=== PATIENT | female | born 1960 | race Caucasian/White ===

== ENCOUNTER → 2016-04-04 | Outpatient (CLI) | payer OTHER ==
[2016-04-04 19:47] LABS: FREE T4 0.95 NG/DL (0.76-1.46)
== END ==
LOC: M WUC 17:17
PROVIDERS: ATTEND Internal Medicine Endocrinology, Diabetes & Metabolism
DX: E03.9 Hypothyroidism, unspecified (principal)

== ENCOUNTER → 2016-04-04 | Outpatient (CLI) | payer OTHER | LOC: M WUC 17:21 | PROVIDERS: ATTEND Internal Medicine | DX: R73.9 Hyperglycemia, unspecified (principal) ==

== ENCOUNTER → 2016-12-05 | Outpatient (CLI) | payer OTHER ==
[2016-12-05 15:03] LABS: FREE T4 1.05 NG/DL (0.76-1.46)
== END ==
LOC: M LAB 13:33
PROVIDERS: ATTEND Internal Medicine Endocrinology, Diabetes & Metabolism
DX: E03.9 Hypothyroidism, unspecified (principal); E04.9 Nontoxic goiter, unspecified

== ENCOUNTER → 2018-04-15 | Outpatient (REF) | payer OTHER ==
[2018-04-15 13:49] LABS: BASO % 0.3 % (0.0-1.0); EOS % 0.2 % (0.0-3.0); HEMATOCRIT 41.6 % (36.0-47.0); HEMOGLOBIN 14.1 g/dl (12.0-15.5); LYMPH # 2.8 10^3/uL (1.5-4.5); LYMPH % 18.7 % (24.0-44.0); MEAN CORPUSCULAR HEMOGLOBIN 30.5 pg (27.0-33.0); MEAN CORPUSCULAR HGB CONC 33.9 g/dl (32.0-36.5); MEAN CORPUSCULAR VOLUME 89.8 fl (80.0-96.0); MONO % 6.9 % (0.0-5.0); NEUTROPHILS # 11.1 10^3/uL (1.8-7.7); NEUTROPHILS % 73.3 % (36.0-66.0); PLATELET COUNT, AUTOMATED 238 10^3/uL (150-450); RED BLOOD COUNT 4.63 10^6/uL (4.00-5.40); WHITE BLOOD COUNT 15.1 10^3/uL (4.0-10.0)
[2018-04-15 14:02] LABS: ALBUMIN 3.6 GM/DL (3.2-5.2); ALT/SGPT 24 U/L (12-78); BILIRUBIN,TOTAL 0.6 MG/DL (0.2-1.0); BLOOD UREA NITROGEN 22 MG/DL (7-18); CALCIUM LEVEL 8.6 MG/DL (8.5-10.1); CARBON DIOXIDE LEVEL 27 MEQ/L (21-32); CHLORIDE LEVEL 103 MEQ/L (98-107); CHOLESTEROL LEVEL 204 MG/DL (<200); CHOLESTEROL RISK RATIO 2.794 (<5); CREATININE FOR GFR 0.61 MG/DL (0.55-1.30); FREE T4 1.46 NG/DL (0.76-1.46); GLOMERULAR FILTRATION RATE > 60.0 (>51); GLUCOSE, FASTING 117 MG/DL (70-100); HDL CHOLESTEROL 73 MG/DL (>40); LDL CHOLESTEROL 96 MG/DL (<100); NON-HDL-C 131 MG/DL; SODIUM LEVEL 139 MEQ/L (136-145); THYROID STIMULATING HORMONE 0.053 uIU/ML (0.358-3.740); TOTAL 25(OH) VITAMIN D 25.3 NG/ML (30.0-100.0); TOTAL PROTEIN 7.1 GM/DL (6.4-8.2); TRIGLYCERIDES LEVEL 176 MG/DL (<150)
[2018-04-15 14:27] LABS: HEMOGLOBIN A1c 6.4 %
== END ==
LOC: M LABDRAW1 13:21
PROVIDERS: ATTEND Physician Assistant
DX: Z13.29 Encounter for screening for other suspected endocrine disorder (principal); E03.9 Hypothyroidism, unspecified

== ENCOUNTER → 2018-04-26 | Outpatient (REF) | payer OTHER ==
[2018-04-30 00:07] LABS: HPV HYBRID CAPTURE II Negative (Negative)
== END ==
LOC: M LAB REF 18:22
PROVIDERS: ATTEND Family Medicine
DX: R39.15 Urgency of urination (principal)

== ENCOUNTER → 2018-07-14 | Outpatient (REF) | payer OTHER ==
[2018-07-14 12:27] LABS: BASO # 0.1 10^3/uL (0.0-0.2); BASO % 0.9 % (0.0-1.0); EOS # 0.1 10^3/uL (0.0-0.50); EOS % 1.7 % (0.0-3.0); HEMATOCRIT 42.6 % (36.0-47.0); HEMOGLOBIN 14.4 g/dl (12.0-15.5); LYMPH # 2.4 10^3/uL (1.5-4.5); LYMPH % 34.3 % (24.0-44.0); MEAN CORPUSCULAR HEMOGLOBIN 30.1 pg (27.0-33.0); MEAN CORPUSCULAR HGB CONC 33.8 g/dl (32.0-36.5); MEAN CORPUSCULAR VOLUME 88.9 fl (80.0-96.0); MONO # 0.4 10^3/uL (0.0-0.8); MONO % 5.5 % (0.0-5.0); NEUTROPHILS % 57.3 % (36.0-66.0); PLATELET COUNT, AUTOMATED 199 10^3/uL (150-450); RED BLOOD COUNT 4.79 10^6/uL (4.00-5.40); WHITE BLOOD COUNT 6.9 10^3/uL (4.0-10.0)
[2018-07-14 12:37] LABS: BLOOD UREA NITROGEN 11 MG/DL (7-18); CARBON DIOXIDE LEVEL 29 MEQ/L (21-32); CHLORIDE LEVEL 106 MEQ/L (98-107); CREATININE FOR GFR 0.62 MG/DL (0.55-1.30); FREE T4 1.34 NG/DL (0.76-1.46); GLOMERULAR FILTRATION RATE > 60.0 (>51); GLUCOSE, FASTING 110 MG/DL (70-100); POTASSIUM SERUM 4.1 MEQ/L (3.5-5.1); SODIUM LEVEL 140 MEQ/L (136-145)
[2018-07-14 12:47] LABS: HEMOGLOBIN A1c 5.8 %
[2018-07-14 12:48] LABS: CREATININE, URINE 27.8 MG/DL; MALB URINE SIEMENS < 5.0 MG/L; MAU/CREAT RATIO 17.9 MCG/MG (0.0-30.0)
== END ==
LOC: M LABDRAW1 09:44
PROVIDERS: ATTEND Physician Assistant
DX: Z79.899 Other long term (current) drug therapy (principal)

== ENCOUNTER → 2018-09-16 | Outpatient (REF) | payer OTHER ==
[2018-09-16 16:14] LABS: BASO # 0.1 10^3/uL (0.0-0.2); BASO % 0.6 % (0.0-1.0); EOS # 0.1 10^3/uL (0.0-0.50); EOS % 0.9 % (0.0-3.0); HEMATOCRIT 40.6 % (36.0-47.0); HEMOGLOBIN 13.6 g/dl (12.0-15.5); LYMPH # 2.2 10^3/uL (1.5-4.5); LYMPH % 25.6 % (24.0-44.0); MEAN CORPUSCULAR HEMOGLOBIN 30.9 pg (27.0-33.0); MEAN CORPUSCULAR HGB CONC 33.5 g/dl (32.0-36.5); MEAN CORPUSCULAR VOLUME 92.3 fl (80.0-96.0); MONO # 0.5 10^3/uL (0.0-0.8); MONO % 5.2 % (0.0-5.0); NEUTROPHILS # 5.8 10^3/uL (1.8-7.7); NEUTROPHILS % 67.5 % (36.0-66.0); PLATELET COUNT, AUTOMATED 184 10^3/uL (150-450); WHITE BLOOD COUNT 8.6 10^3/uL (4.0-10.0)
[2018-09-16 16:23] LABS: FREE T4 1.14 NG/DL (0.76-1.46); THYROID STIMULATING HORMONE 1.43 uIU/ML (0.358-3.740)
== END ==
LOC: M LABDRAW1 15:49
PROVIDERS: ATTEND Physician Assistant
DX: E03.9 Hypothyroidism, unspecified (principal)

== ENCOUNTER → 2021-02-25 | Outpatient (CLI) | payer OTHER, MEDICARE ==
[~2021-02-25] MED LIST: LEVO175T2 PO; QC A650T3 PO; RELP40TA PO
[2021-02-25 18:02] LABS: C REACTIVE PROTEIN QUANTITATIV 0.33 MG/DL (0.00-0.30); RHEUMATOID FACTOR QUANT < 10.0 IU/ML (<15.0); URIC ACID 4.1 MG/DL (2.6-6.0)
[2021-02-27 23:07] LABS: ANA (HEP2) Negative (.); CYCLIC CITRULLINATED PEPTIDE 6 units (0-19); Lyme Disease IgG/IgM Antibodie <0.91 ISR (0.00-0.90); Lyme Disease IgM Ab Quantitati <0.80 index (0.00-0.79)
== END ==
LOC: MERGE 14:58 → M PLALAB 14:58
PROVIDERS: ATTEND Physician Assistant
DX: M25.539 Pain in unspecified wrist (principal)

== ENCOUNTER → 2021-03-08 | Outpatient (CLI) | payer MEDICARE, OTHER ==
[2021-03-08 13:35] LABS: BASO # 0.1 10^3/uL (0.0-0.2); BASO % 0.7 % (0.0-1.0); EOS # 0.2 10^3/uL (0.0-0.5); EOS % 1.7 % (0.0-3.0); HEMATOCRIT 43.7 % (36.0-47.0); HEMOGLOBIN 14.6 g/dl (12.0-15.5); LYMPH # 3.1 10^3/uL (1.5-5.0); LYMPH % 32.1 % (24.0-44.0); MEAN CORPUSCULAR HEMOGLOBIN 30.1 pg (27.0-33.0); MEAN CORPUSCULAR HGB CONC 33.4 g/dl (32.0-36.5); MEAN CORPUSCULAR VOLUME 90.1 fl (80.0-96.0); MONO # 0.7 10^3/uL (0.0-0.8); MONO % 7.2 % (2.0-8.0); NEUTROPHILS # 5.6 10^3/uL (1.5-8.5); NEUTROPHILS % 58.1 % (36.0-66.0); PLATELET COUNT, AUTOMATED 212 10^3/uL (150-450); RED BLOOD COUNT 4.85 10^6/uL (4.00-5.40); WHITE BLOOD COUNT 9.6 10^3/uL (4.0-10.0)
[2021-03-08 14:14] LABS: BLOOD UREA NITROGEN 13 MG/DL (7-18); CARBON DIOXIDE LEVEL 28 MEQ/L (21-32); CHLORIDE LEVEL 106 MEQ/L (98-107); CREATININE FOR GFR 0.74 MG/DL (0.55-1.30); GLOMERULAR FILTRATION RATE > 60.0 (>45); GLUCOSE, FASTING 108 MG/DL (70-100); POTASSIUM SERUM 5.5 MEQ/L (3.5-5.1); SODIUM LEVEL 140 MEQ/L (136-145)
== END ==
LOC: MERGE 11:23 → M PLALAB 11:23
PROVIDERS: ATTEND Family Medicine
DX: Z01.818 Encounter for other preprocedural examination (principal); M75.41 Impingement syndrome of right shoulder; Z11.52 Encounter for screening for COVID-19
CPT/HCPCS: 36415; 80048; 85025; U0003

== ENCOUNTER → 2021-03-08 | Outpatient (CLI) | payer MEDICARE, OTHER | LOC: M LABSMTC 11:14 → MERGE 11:14 | PROVIDERS: ATTEND Orthopaedic Surgery | DX: Z11.52 Encounter for screening for COVID-19 (principal); M75.41 Impingement syndrome of right shoulder ==

== ENCOUNTER → 2021-09-09 | Outpatient (CLI) | payer OTHER | LOC: M PLAIMG 06:35 | PROVIDERS: ATTEND Family Medicine | DX: M54.12 Radiculopathy, cervical region (principal); M25.78 Osteophyte, vertebrae ==

== ENCOUNTER → 2021-10-16 | Outpatient (CLI) | payer OTHER, MEDICARE ==
[2021-10-16 13:28] LABS: BASO # 0.1 10^3/uL (0.0-0.2); BASO % 0.8 % (0.0-1.0); EOS # 0.1 10^3/uL (0.0-0.5); EOS % 0.9 % (0.0-3.0); HEMATOCRIT 41.3 % (36.0-47.0); HEMOGLOBIN 13.7 g/dl (12.0-15.5); LYMPH # 2.6 10^3/uL (1.5-5.0); MEAN CORPUSCULAR HEMOGLOBIN 30.9 pg (27.0-33.0); MEAN CORPUSCULAR HGB CONC 33.2 g/dl (32.0-36.5); MONO # 0.4 10^3/uL (0.0-0.8); NEUTROPHILS # 5.6 10^3/uL (1.5-8.5); PLATELET COUNT, AUTOMATED 239 10^3/uL (150-450); RED BLOOD COUNT 4.44 10^6/uL (4.00-5.40); WHITE BLOOD COUNT 8.8 10^3/uL (4.0-10.0)
[2021-10-16 13:51] LABS: HEMOGLOBIN A1c 5.8 %
[2021-10-16 14:16] LABS: ALBUMIN 3.9 GM/DL (3.2-5.2); ALT/SGPT 22 U/L (12-78); BILIRUBIN,TOTAL 1.3 MG/DL (0.2-1.0); BLOOD UREA NITROGEN 17 MG/DL (7-18); CALCIUM LEVEL 9.8 MG/DL (8.8-10.2); CARBON DIOXIDE LEVEL 27 MEQ/L (21-32); CHLORIDE LEVEL 109 MEQ/L (98-107); CHOLESTEROL LEVEL 228 MG/DL (<200); CHOLESTEROL RISK RATIO 3.454 (<5); CREATININE FOR GFR 0.68 MG/DL (0.55-1.30); FREE T4 1.32 NG/DL (0.76-1.46); GLOMERULAR FILTRATION RATE > 60.0 (>45); GLUCOSE, FASTING 134 MG/DL (70-100); HDL CHOLESTEROL 66 MG/DL (>40); LDL CHOLESTEROL 146 MG/DL (<100); NON-HDL-C 162 MG/DL; POTASSIUM SERUM 4.4 MEQ/L (3.5-5.1); SODIUM LEVEL 141 MEQ/L (136-145); THYROID STIMULATING HORMONE 0.532 uIU/ML (0.358-3.740); TOTAL PROTEIN 7.5 GM/DL (6.4-8.2); TRIGLYCERIDES LEVEL 82 MG/DL (<150)
[2021-10-16 14:44] LABS: TOTAL 25(OH) VITAMIN D 50.8 NG/ML (30.0-100.0); VITAMIN B12 LEVEL 578 PG/ML
[2021-10-16 14:45] LABS: FOLATE 11.1 NG/ML
[2021-10-16 15:16] LABS: ERYTHROCYTE SEDIMENTATION RATE 35 mm/hr (0-30)
== END ==
LOC: M LAB 12:26
PROVIDERS: ATTEND Family Medicine
DX: E78.00 Pure hypercholesterolemia, unspecified (principal); E55.9 Vitamin D deficiency, unspecified; E03.9 Hypothyroidism, unspecified; M79.7 Fibromyalgia

== ENCOUNTER → 2021-10-16 | Outpatient (REF) | payer OTHER | LOC: M LAB REF 12:25 | PROVIDERS: ATTEND Physician Assistant | DX: J06.9 Acute upper respiratory infection, unspecified (principal) ==

== ENCOUNTER → 2022-02-03 | Outpatient (CLI) | payer OTHER, MEDICARE | LOC: M WUC 14:32 | PROVIDERS: ATTEND Physician Assistant | DX: U09.9 Post COVID-19 condition, unspecified (principal) ==

== ENCOUNTER → 2022-02-17 | Outpatient (CLI) | payer OTHER, MEDICARE ==
[2022-02-17 16:41] LABS: BASO % 0.5 % (0.0-1.0); EOS % 0.1 % (0.0-3.0); HEMATOCRIT 40.9 % (36.0-47.0); HEMOGLOBIN 13.3 g/dl (12.0-15.5); LYMPH # 1.2 10^3/uL (1.5-5.0); LYMPH % 14.5 % (24.0-44.0); MEAN CORPUSCULAR HEMOGLOBIN 30.2 pg (27.0-33.0); MEAN CORPUSCULAR HGB CONC 32.5 g/dl (32.0-36.5); MEAN CORPUSCULAR VOLUME 92.7 fl (80.0-96.0); MONO # 0.1 10^3/uL (0.0-0.8); MONO % 1.5 % (2.0-8.0); NEUTROPHILS # 6.8 10^3/uL (1.5-8.5); NEUTROPHILS % 83.2 % (36.0-66.0); PLATELET COUNT, AUTOMATED 211 10^3/uL (150-450); RED BLOOD COUNT 4.41 10^6/uL (4.00-5.40); WHITE BLOOD COUNT 8.1 10^3/uL (4.0-10.0)
[2022-02-17 17:10] LABS: ERYTHROCYTE SEDIMENTATION RATE 22 mm/hr (0-30)
[2022-02-17 17:12] LABS: ALBUMIN 4.2 G/DL (3.2-5.2); ALT/SGPT 14 U/L (7.0-40); BILIRUBIN,DIRECT 0.3 MG/DL (<0.4); BILIRUBIN,TOTAL 1.2 MG/DL (0.3-1.2); BLOOD UREA NITROGEN 17 MG/DL (9-23); CALCIUM LEVEL 8.7 MG/DL (8.3-10.6); CARBON DIOXIDE LEVEL 27 MMOL/L (20-31); CHLORIDE LEVEL 103 MMOL/L (98-107); CK-MB VALUE MASS < 1.0 NG/ML (<3.6); CREATININE FOR GFR 0.58 MG/DL (0.55-1.30); FREE T4 1.33 NG/DL (0.89-1.76); GLOMERULAR FILTRATION RATE > 60.0 (>45); GLUCOSE, FASTING 156 MG/DL (74-106); POTASSIUM SERUM 3.8 MMOL/L (3.5-5.1); SODIUM LEVEL 139 MMOL/L (136-145); THYROID STIMULATING HORMONE 0.728 uIU/ML (0.55-4.78); TOTAL PROTEIN 7.3 G/DL (5.7-8.2)
== END ==
LOC: M LAB 15:05
PROVIDERS: ATTEND Family Medicine
DX: U09.9 Post COVID-19 condition, unspecified (principal)

== ENCOUNTER → 2022-03-25 | Outpatient (CLI) | payer MEDICARE, OTHER | LOC: M LABSMTC 11:25 | PROVIDERS: ATTEND Orthopaedic Surgery | DX: Z79.890 Hormone replacement therapy (principal) ==

== ENCOUNTER → 2022-04-21 | Outpatient (CLI) | payer MEDICARE, OTHER | LOC: M LABSMTC 11:31 | PROVIDERS: ATTEND Orthopaedic Surgery Orthopaedic Surgery of the Spine | DX: Z20.822 Contact with and (suspected) exposure to COVID-19 (principal) ==

== ENCOUNTER → 2022-04-27 | Outpatient (CLI) | payer MEDICARE, OTHER | LOC: M LABSMTC 11:25 | PROVIDERS: ATTEND Orthopaedic Surgery Orthopaedic Surgery of the Spine | DX: Z20.828 Contact with and (suspected) exposure to other viral communicable diseases (principal); Z11.52 Encounter for screening for COVID-19 ==

== ENCOUNTER → 2022-05-06 | Outpatient (CLI) | payer MEDICARE, OTHER | LOC: M LABSMTC 09:45 | PROVIDERS: ATTEND Orthopaedic Surgery | DX: Z20.828 Contact with and (suspected) exposure to other viral communicable diseases (principal); Z11.52 Encounter for screening for COVID-19 ==

== ENCOUNTER → 2022-06-17 | Outpatient (CLI) | payer MEDICARE, OTHER ==
[~2022-06-17] MED LIST changes: +ISOVUE-370 76% 100ML VIAL As Ordered ONE
== END ==
LOC: M RAD 08:34
PROVIDERS: ATTEND Physician Assistant
DX: R06.02 Shortness of breath (principal)
CPT/HCPCS: 71275; Q9967

== ENCOUNTER → 2022-11-12 | Outpatient (CLI) | payer MEDICARE, OTHER ==
[~2022-11-12] MED LIST changes: -ISOVUE-370 76% 100ML VIAL As Ordered ONE
== END ==
LOC: M WUC 14:32
PROVIDERS: ATTEND Nurse Practitioner Family
DX: S92.515A Nondisplaced fracture of proximal phalanx of left lesser toe(s), initial encounter for closed fracture (principal)

== ENCOUNTER → 2023-01-28 | Outpatient (CLI) | payer MEDICARE, OTHER ==
[2023-01-28 16:04] LABS: BASO % 0.6 % (0.0-1.0); EOS # 0.1 10^3/uL (0.0-0.5); EOS % 1.7 % (0.0-3.0); HEMOGLOBIN 14.2 g/dl (12.0-15.5); LYMPH # 2.6 10^3/uL (1.5-5.0); MEAN CORPUSCULAR HEMOGLOBIN 29.2 pg (27.0-33.0); MEAN CORPUSCULAR VOLUME 88.3 fl (80.0-96.0); MONO # 0.6 10^3/uL (0.0-0.8); MONO % 9.8 % (2.0-8.0); NEUTROPHILS % 46.7 % (36.0-66.0); PLATELET COUNT, AUTOMATED 188 10^3/uL (150-450); RED BLOOD COUNT 4.87 10^6/uL (4.00-5.40); WHITE BLOOD COUNT 6.4 10^3/uL (4.0-10.0)
[2023-01-28 16:26] LABS: ERYTHROCYTE SEDIMENTATION RATE 34 mm/hr (0-30)
[2023-01-28 16:31] LABS: TOTAL IRON BINDING CAPACITY 322 UG/DL (250-425)
[2023-01-28 16:32] LABS: ALBUMIN 3.8 G/DL (3.2-5.2); ALKALINE PHOSPHATASE 120 U/L (46-116); ALT/SGPT 19 U/L (7.0-40); AST/SGOT 20 U/L (<34); BILIRUBIN,TOTAL 1.2 MG/DL (0.3-1.2); BLOOD UREA NITROGEN 13 MG/DL (9-23); CALCIUM LEVEL 9.4 MG/DL (8.3-10.6); CARBON DIOXIDE LEVEL 29 MMOL/L (20-31); CHLORIDE LEVEL 106 MMOL/L (98-107); CHOLESTEROL LEVEL 197 MG/DL (<200); CHOLESTEROL RISK RATIO 2.97 (<5); CREATININE FOR GFR 0.54 MG/DL (0.55-1.30); GLOMERULAR FILTRATION RATE > 60.0 (>45); GLUCOSE, FASTING 110 MG/DL (74-106); HDL CHOLESTEROL 66.3 MG/DL (>40); IRON (FE) 35 UG/DL (50-170); LDL CHOLESTEROL 111.9 MG/DL (<100); NON-HDL-C 130.7 MG/DL; PERCENT SATURATION 10.9 % (13.2-45.0); POTASSIUM SERUM 4.8 MMOL/L (3.5-5.1); SODIUM LEVEL 140 MMOL/L (136-145); TOTAL PROTEIN 7.2 G/DL (5.7-8.2); TRIGLYCERIDES LEVEL 94 MG/DL (<150)
[2023-01-28 16:35] LABS: FERRITIN 109.9 NG/ML (7.3-270.7); FREE T4 1.93 NG/DL (0.89-1.76); THYROID STIMULATING HORMONE 0.009 uIU/ML (0.55-4.78)
[2023-01-28 16:36] LABS: FOLATE 15.9 NG/ML (>5.4)
[2023-01-28 16:37] LABS: TOTAL 25(OH) VITAMIN D 35.3 NG/ML (20.0-100.0); VITAMIN B12 LEVEL 509 PG/ML (211-911)
[2023-01-28 16:41] LABS: HEMOGLOBIN A1c 5.7 % (4.0-6.0)
== END ==
LOC: M LAB 15:14
PROVIDERS: ATTEND Physician Assistant
DX: E03.9 Hypothyroidism, unspecified (principal); E55.9 Vitamin D deficiency, unspecified; E78.00 Pure hypercholesterolemia, unspecified; M79.7 Fibromyalgia; Z79.899 Other long term (current) drug therapy

== ENCOUNTER → 2023-06-29 | Outpatient (CLI) | payer MEDICARE, OTHER ==
[2023-06-29 15:30] LABS: BASO % 0.5 % (0.0-1.0); EOS # 0.1 10^3/uL (0.0-0.5); EOS % 1.4 % (0.0-3.0); HEMATOCRIT 39.8 % (36.0-47.0); HEMOGLOBIN 13.4 g/dl (12.0-15.5); LYMPH % 34.8 % (24.0-44.0); MEAN CORPUSCULAR HGB CONC 33.7 g/dl (32.0-36.5); MEAN CORPUSCULAR VOLUME 92.1 fl (80.0-96.0); MONO # 0.6 10^3/uL (0.0-0.8); MONO % 6.4 % (2.0-8.0); NEUTROPHILS # 4.8 10^3/uL (1.5-8.5); NEUTROPHILS % 56.8 % (36.0-66.0); PLATELET COUNT, AUTOMATED 183 10^3/uL (150-450); RED BLOOD COUNT 4.32 10^6/uL (4.00-5.40); WHITE BLOOD COUNT 8.5 10^3/uL (4.0-10.0)
[2023-06-29 16:06] LABS: ALBUMIN 3.7 G/DL (3.2-5.2); ALKALINE PHOSPHATASE 107 U/L (46-116); ALT/SGPT 24 U/L (7.0-40); AST/SGOT 20 U/L (<34); BILIRUBIN,TOTAL 1.5 MG/DL (0.3-1.2); BLOOD UREA NITROGEN 15 MG/DL (9-23); CARBON DIOXIDE LEVEL 30 MMOL/L (20-31); CHLORIDE LEVEL 105 MMOL/L (98-107); GLOMERULAR FILTRATION RATE > 60.0 (>45); GLUCOSE, FASTING 93 MG/DL (74-106); MAGNESIUM LEVEL 2.1 MG/DL (1.8-2.4); POTASSIUM SERUM 3.8 MMOL/L (3.5-5.1); SODIUM LEVEL 137 MMOL/L (136-145); TOTAL PROTEIN 6.4 G/DL (5.7-8.2)
[2023-06-29 16:09] LABS: FREE T4 1.07 NG/DL (0.89-1.76); VITAMIN B12 LEVEL 603 PG/ML (211-911)
[2023-06-29 16:11] LABS: THYROID STIMULATING HORMONE 0.625 uIU/ML (0.55-4.78)
[2023-06-29 16:29] LABS: HEMOGLOBIN A1c 5.8 % (4.0-6.0)
== END ==
LOC: M LAB 14:50
PROVIDERS: ATTEND Physician Assistant
DX: E03.9 Hypothyroidism, unspecified (principal); E78.00 Pure hypercholesterolemia, unspecified; M79.7 Fibromyalgia; R73.01 Impaired fasting glucose; Z79.899 Other long term (current) drug therapy

== ENCOUNTER → 2023-07-01 | Outpatient (CLI) | payer MEDICARE, OTHER | LOC: M WUC 12:07 | PROVIDERS: ATTEND Physician Assistant | DX: J45.901 Unspecified asthma with (acute) exacerbation (principal) ==

== ENCOUNTER → 2023-12-31 | Outpatient (CLI) | payer MEDICARE, OTHER ==
[2023-12-31 13:07] LABS: BASO # 0.1 10^3/uL (0.0-0.2); BASO % 0.9 % (0.0-1.0); EOS # 0.1 10^3/uL (0.0-0.5); EOS % 1.7 % (0.0-3.0); HEMATOCRIT 41.2 % (36.0-47.0); HEMOGLOBIN 13.3 g/dl (12.0-15.5); LYMPH # 2.1 10^3/uL (1.5-5.0); LYMPH % 28.7 % (24.0-44.0); MEAN CORPUSCULAR HEMOGLOBIN 30.7 pg (27.0-33.0); MEAN CORPUSCULAR HGB CONC 32.3 g/dl (32.0-36.5); MEAN CORPUSCULAR VOLUME 95.2 fl (80.0-96.0); MONO # 0.5 10^3/uL (0.0-0.8); MONO % 6.3 % (2.0-8.0); NEUTROPHILS # 4.6 10^3/uL (1.5-8.5); NEUTROPHILS % 62.1 % (36.0-66.0); PLATELET COUNT, AUTOMATED 203 10^3/uL (150-450); RED BLOOD COUNT 4.33 10^6/uL (4.00-5.40); WHITE BLOOD COUNT 7.5 10^3/uL (4.0-10.0)
[2023-12-31 13:31] LABS: LIPASE 59 U/L (12-53)
[2023-12-31 13:33] LABS: BLOOD UREA NITROGEN 23 MG/DL (9-23); CALCIUM LEVEL 9.5 MG/DL (8.3-10.6); CARBON DIOXIDE LEVEL 29 MMOL/L (20-31); CHLORIDE LEVEL 109 MMOL/L (98-107); CHOLESTEROL LEVEL 211 MG/DL (<200); CHOLESTEROL RISK RATIO 3.07 (<5); CREATININE FOR GFR 0.58 MG/DL (0.55-1.30); GLOMERULAR FILTRATION RATE > 60.0 (>45); GLUCOSE, FASTING 113 MG/DL (74-106); HDL CHOLESTEROL 68.6 MG/DL (>40); NON-HDL-C 142.4 MG/DL; POTASSIUM SERUM 4.8 MMOL/L (3.5-5.1); SODIUM LEVEL 141 MMOL/L (136-145); TRIGLYCERIDES LEVEL 72 MG/DL (<150)
[2023-12-31 13:34] LABS: THYROID STIMULATING HORMONE 3.667 uIU/ML (0.55-4.78)
[2023-12-31 13:36] LABS: FREE T4 0.92 NG/DL (0.89-1.76)
[2023-12-31 13:54] LABS: HEMOGLOBIN A1c 5.4 % (4.0-6.0)
[2023-12-31 14:12] LABS: APPEARANCE, URINE CLEAR (CLEAR); BACTERIA, URINE AUTO NEGATIVE (NEGATIVE); BILIRUBIN, URINE AUTO NEGATIVE (NEGATIVE); BLOOD, URINE BLOOD NEGATIVE (NEGATIVE); COLOR, URINE YELLOW (YELLOW); GLUCOSE, URINE (UA) AUTO NEGATIVE (NEGATIVE); KETONE, URINE AUTO NEGATIVE (NEGATIVE); LEUKOCYTE ESTERASE, URINE AUTO NEGATIVE (NEGATIVE); MUCUS, URINE SMALL (NEGATIVE); NITRITE, URINE AUTO NEGATIVE (NEGATIVE); PROTEIN, URINE AUTO NEGATIVE (NEGATIVE); RBC, URINE AUTO 0 /HPF (0-3); SPECIFIC GRAVITY URINE AUTO 1.018 (1.002-1.035); SQUAMOUS EPITHELIAL CELL UR AU 1 /HPF (0-6); UROBILINOGEN, URINE AUTO 0.2 mg/dL (0.0-2.0); WBC, URINE AUTO 2 /HPF (0-3)
== END ==
LOC: M LAB 11:36
PROVIDERS: ATTEND Physician Assistant
DX: E03.9 Hypothyroidism, unspecified (principal); E78.00 Pure hypercholesterolemia, unspecified; E55.9 Vitamin D deficiency, unspecified; R73.01 Impaired fasting glucose; R10.812 Left upper quadrant abdominal tenderness

== ENCOUNTER → 2024-01-13 | Outpatient (CLI) | payer MEDICARE, OTHER ==
[~2024-01-13] MED LIST changes: +GASTROGRAFIN SOLUTION 30ML As Ordered ONE; +ISOVUE-370 76% 100ML VIAL As Ordered ONE
== END ==
LOC: M RAD 07:46
PROVIDERS: ATTEND Physician Assistant
DX: R10.812 Left upper quadrant abdominal tenderness (principal)
CPT/HCPCS: 74177; Q9963; Q9967

== ENCOUNTER 2024-02-05 11:30 | Emergency (ER) | payer MEDICARE, OTHER ==
[~2024-02-05] VITALS: Ht 170.2 cm; Wt 76.8 kg
[~2024-02-05 11:30] MED LIST changes: -GASTROGRAFIN SOLUTION 30ML As Ordered ONE; -ISOVUE-370 76% 100ML VIAL As Ordered ONE
[2024-02-05 13:52] VITALS: BP 144/78; TEMP 97.9; O2SAT 99
== END 2024-02-05 13:53 | disposition home or self-care (01) ==
LOC: M ED 11:30
DX: S60.211A Contusion of right wrist, initial encounter (principal); S70.01XA Contusion of right hip, initial encounter; S80.02XA Contusion of left knee, initial encounter; W01.0XXA Fall on same level from slipping, tripping and stumbling without subsequent striking against object, initial encounter; Y92.410 Unspecified street and highway as the place of occurrence of the external cause; Y93.K1 Activity, walking an animal; Y99.9 Unspecified external cause status; Z88.2 Allergy status to sulfonamides; Z88.1 Allergy status to other antibiotic agents; Z91.040 Latex allergy status; Z79.1 Long term (current) use of non-steroidal anti-inflammatories (NSAID); Z79.899 Other long term (current) drug therapy

== ENCOUNTER → 2024-02-18 | Outpatient (CLI) | payer MEDICARE, OTHER ==
[2024-02-18 16:49] LABS: HEPATITIS B SURFACE ANTIGEN NEGATIVE (NEGATIVE)
[2024-02-18 17:03] LABS: HIV 1&2 SCREEN NEGATIVE (NEGATIVE)
[2024-02-18 17:10] LABS: HEPATITIS C VIRUS ABY INDEX < 0.02 INDEX (<0.8)
[2024-02-18 17:11] LABS: HEPATITIS B CORE ANTIBODY IGM NEGATIVE (NEGATIVE)
[2024-02-18 19:43] LABS: GC DNA AMPLIFICATION NEGATIVE (NEGATIVE)
[2024-02-22 15:52] LABS: HPV APTIMA Detected (Not Detected)
== END ==
LOC: M PLALAB 12:06
PROVIDERS: ATTEND Nurse Practitioner Family
DX: Z12.4 Encounter for screening for malignant neoplasm of cervix (principal); Z11.3 Encounter for screening for infections with a predominantly sexual mode of transmission; R87.612 Low grade squamous intraepithelial lesion on cytologic smear of cervix (LGSIL); Z72.89 Other problems related to lifestyle; Z11.59 Encounter for screening for other viral diseases
CPT/HCPCS: 36415; 86705; 86780; 86803; 87340; 87389; 87624; 87661; 87810; 87850; G0123

== ENCOUNTER → 2024-04-19 | Outpatient (REF) | payer MEDICARE, OTHER | LOC: M SFHCWAGY 15:09 | PROVIDERS: ATTEND Nurse Practitioner Family | DX: N84.1 Polyp of cervix uteri (principal) ==

== ENCOUNTER → 2024-04-26 | Outpatient (REF) | payer MEDICARE, OTHER | LOC: M SFHCWAGY 15:12 | PROVIDERS: ATTEND Specialist | DX: R87.612 Low grade squamous intraepithelial lesion on cytologic smear of cervix (LGSIL) (principal) ==

== ENCOUNTER 2024-05-24 06:51 | Day surgery (SDC) | payer MEDICARE, OTHER ==
[~2024-05-24] VITALS: Ht 170.2 cm; Wt 73.7 kg
[~2024-05-24 06:51] MED LIST changes: +DULO1CAP6 PO; +ESTR1CRE TOP; +MELO15TA28 PO; +SYNT150T PO; +YUVA10TA3 PO
[2024-05-24] MEDS ORDERED: LIDOCAINE 2% 100MG/5ML SDV (FOR ANES.) As Ordered ONE (06:58)
[2024-05-24] MEDS ORDERED: propofoL 200 MG/20 ML VIAL As Ordered ONE (06:58)
[2024-05-24 07:58] VITALS: TEMP 96.8
[2024-05-24 08:13] VITALS: BP 135/73; O2SAT 100
== END 2024-05-24 08:25 | disposition home or self-care (01) ==
LOC: M OPP 06:51
PROVIDERS: ATTEND Surgery
DX: Z12.11 Encounter for screening for malignant neoplasm of colon (principal); K64.0 First degree hemorrhoids; Z80.0 Family history of malignant neoplasm of digestive organs; E06.3 Autoimmune thyroiditis; M79.7 Fibromyalgia; G43.909 Migraine, unspecified, not intractable, without status migrainosus; Z79.899 Other long term (current) drug therapy; Z79.890 Hormone replacement therapy; Z79.1 Long term (current) use of non-steroidal anti-inflammatories (NSAID); Z88.2 Allergy status to sulfonamides; Z88.1 Allergy status to other antibiotic agents; Z91.040 Latex allergy status

== ENCOUNTER → 2025-03-15 | Outpatient (REF) | payer MEDICARE, OTHER | LOC: M LAB REF 17:06 | PROVIDERS: ATTEND Family Medicine | DX: J06.9 Acute upper respiratory infection, unspecified (principal) ==